=== PATIENT | male | born 1995 | race Caucasian/White ===

== ENCOUNTER → 2017-12-14 | Outpatient (CLI) | payer BC ==
--- NOTE | 2017-12-14 21:23 | DIAGNOSTIC IMAGING REPORT ---
MRI OF THE RIGHT KNEE WITHOUT CONTRAST CLINICAL HISTORY: Right knee pain. Possible patellar tendinitis. COMPARISON STUDY: None. TECHNIQUE: Utilizing a 1.5 [place] magnet and dedicated coil, multiplanar, multiecho imaging of the right knee was performed without intravenous or intraarticular contrast. FINDINGS: Alignment of the right knee is anatomic. The ACL graft is intact. The posterior cruciate ligament is intact. The medial collateral ligament and lateral collateral ligament complex are also intact. There is no marrow edema or marrow replacement. There is spurring of the inferior pole of the patella at the origin the patellar tendon. There is no significant adjacent edema. Extensor mechanism is intact. There is no meniscal tear. There is slight indentation of the lateral femoral condyle which may be related to previous ACL injury. There is no significant marrow edema. No additional chondral abnormalities are identified. IMPRESSION: 1. Status post ACL reconstruction. Graft intact. 2. Moderate inferior patellar spurring without adjacent edema. 3. No meniscal tear. 4. Slight indentation of the lateral femoral condyle which may be related to previous ACL injury. No associated marrow edema. No additional chondral abnormalities. Electronically signed by: Jose Elias Marcus M.D. 12/14/2017 9:22 PM Dictated Date/Time: 12/14/2017 9:16 PM
== END | disposition home or self-care (01) ==
LOC: C.MRI 19:53
PROVIDERS: ATTEND Orthopaedic Surgery
DX: M25.561 Pain in right knee (principal); Z98.890 Other specified postprocedural states; M25.761 Osteophyte, right knee